=== PATIENT | female | born 1965 | race Caucasian/White ===

== ENCOUNTER 2016-07-10 22:21 | Emergency (ER) | payer OTHER | END 2016-07-11 01:25 | disposition home or self-care (01) | LOC: ER1 22:21 | DX: J02.0 Streptococcal pharyngitis (principal); F17.200 Nicotine dependence, unspecified, uncomplicated; Z88.5 Allergy status to narcotic agent; Z88.8 Allergy status to other drugs, medicaments and biological substances | CPT/HCPCS: 87081; 87880; 96372; 99283; J1885 ==

== ENCOUNTER 2016-07-13 13:13 | Emergency (ER) | payer OTHER | END 2016-07-13 16:00 | disposition home or self-care (01) | LOC: ER1 13:13 | DX: J11.1 Influenza due to unidentified influenza virus with other respiratory manifestations (principal); J02.0 Streptococcal pharyngitis; F17.290 Nicotine dependence, other tobacco product, uncomplicated; Z88.5 Allergy status to narcotic agent | CPT/HCPCS: 71020; 81001; 99283; Q0162 ==

== ENCOUNTER → 2020-05-10 | Outpatient (CLI) | payer OTHER | LOC: KOH-I 14:17 | DX: U07.1 COVID-19 (principal); M54.5 Low back pain; E55.9 Vitamin D deficiency, unspecified; M47.814 Spondylosis without myelopathy or radiculopathy, thoracic region; M47.816 Spondylosis without myelopathy or radiculopathy, lumbar region; M48.04 Spinal stenosis, thoracic region | CPT/HCPCS: 72070; 72110 ==

== ENCOUNTER → 2020-08-15 | Outpatient (CLI) | payer OTHER | LOC: MAMO 11:27 | DX: Z12.31 Encounter for screening mammogram for malignant neoplasm of breast (principal); E55.9 Vitamin D deficiency, unspecified; Z78.0 Asymptomatic menopausal state | CPT/HCPCS: 77063; 77067; 77080 ==

== ENCOUNTER → 2020-10-25 | Outpatient (CLI) | payer OTHER | LOC: KOH-I 08:00 | DX: F17.210 Nicotine dependence, cigarettes, uncomplicated (principal) | CPT/HCPCS: 71271 ==